=== PATIENT | male | born 1965 | race Caucasian/White ===

== ENCOUNTER → 2023-02-18 13:19 | Outpatient (BNVA) | payer SELFPAY | PROVIDERS: PCP Family Medicine; Visit Provider Family Medicine | DX: E11.9 Type 2 diabetes mellitus without complications (principal); E78.5 Hyperlipidemia, unspecified; Z12.5 Encounter for screening for malignant neoplasm of prostate | CPT/HCPCS: 80053; 80061; 82043; 83036; 85025; G0103 ==

== ENCOUNTER → 2023-07-31 11:41 | Outpatient (BNVA) | payer SELFPAY | PROVIDERS: PCP Family Medicine; Visit Provider Family Medicine | DX: E11.9 Type 2 diabetes mellitus without complications (principal) | CPT/HCPCS: 80053; 83036 ==

== ENCOUNTER → 2023-10-16 10:54 | Outpatient (BNVA) | payer SELFPAY | PROVIDERS: PCP Family Medicine; Visit Provider Family Medicine | DX: E11.9 Type 2 diabetes mellitus without complications (principal); I10 Essential (primary) hypertension; R19.5 Other fecal abnormalities | CPT/HCPCS: 80053; 83036 ==

== ENCOUNTER 2024-01-21 05:39 | Day surgery (SDC) | payer OTHER, SELFPAY ==
[2024-01-21 05:53] VITALS: BP 125/87; PULSE 106; RESP 18; TEMP 36.2; O2SAT 98; BMI 29.0
[2024-01-21] MEDS: sodium chloride 0.9% 1,000 ML 30 ML IV (06:04)
[2024-01-21 06:07] LABS: Glucose Point of Care 188 mg/dL (70-110)
--- NOTE | 2024-01-21 06:28 | PM.HP ---
Providers/Chief Complaint Primary Care Provider: Sariah Slater DO Chief Complaint: Z12.11 History of Present Illness Everett Holman is a 58 year old male Review of Systems General: Reports: 10 or more systems reviewed and unremarkable except in HPI and below Medications/Allergies Home Medications Medication Instructions Recorded Confirmed Last Taken Type aspirin 81 mg chewable tablet 81 mg PO DAILY 12/03/22 01/19/24 01/18/24 History (Children's Aspirin) flash glucose sensor (FreeStyle #2 ea 12/03/22 10/21/23 Unknown Rx Anthony 14 Day Sensor kit) flash glucose sensor (FreeStyle #2 ea 10/16/23 10/21/23 Unknown Rx Anthony 2 Sensor kit) canagliflozin 300 mg tablet 300 mg PO QAM #90 tabs 10/17/23 01/19/24 01/18/24 Rx (Invokana) carvedilol 3.125 mg tablet 3.125 mg PO BID 90 days #180 tabs 10/17/23 01/19/24 01/18/24 Rx losartan 50 mg tablet 50 mg PO DAILY #90 tabs 10/17/23 01/19/24 01/18/24 Rx metformin 500 mg tablet 1,000 mg (2 x 500 mg) PO BID #360 10/17/23 01/19/24 01/18/24 Rx tabs rosuvastatin 40 mg tablet 40 mg PO DAILY #90 tabs 10/17/23 01/19/24 01/18/24 Rx sitagliptin phosphate 100 mg 100 mg PO QAM 01/19/24 01/19/24 01/18/24 History tablet (Januvia) Allergies Allergy/AdvReac Type Severity Reaction Status Date / Time No Known Allergies Allergy Unverified 01/19/24 08:33 PFSH Acute PFSH: Medical History (Updated 10/21/23 @ 09:15 by Angus Lopez DO) Family history of colon cancer Dyslipidemia [place] (myocardial infarction) Type 2 diabetes mellitus, without long-term current use of insulin Benign essential HTN Surgical History History of right inguinal hernia repair 2007 History of heart artery stent 2016 - RCA Family History Father Diabetes Grandfather Cancer colon Social History Smoking and tobacco/nicotine status: current every day tobacco/nicotine user Alcohol intake: current Alcohol intake frequency: holidays/special occasions only Vitals/I&O/Wt Last Vital Signs Temp 97.1 F L 01/21/24 05:53 Pulse 106 H 01/21/24 05:53 Resp 18 01/21/24 05:53 BP 125/87 01/21/24 05:53 Pulse Ox 98 01/21/24 05:53 O2 Del Method Room Air 01/21/24 05:53 Weight last 48 hrs Weight 180 lb A&P Assessment and plan (1) Colon cancer screening: Plan Colonoscopy The risks and benefits of the procedure, including bleeding, infection, intestinal perforation requiring surgery, missed lesion were explained to the patient. The patient is understanding of the risks and wishes to proceed. Attestations Medical Necessity Statement*: Home Coding Level of Care Code Acute Code for Chg Fwd Diagnoses Colon cancer screening Z12.11
--- NOTE | 2024-01-21 06:50 | ANES.PREANE2 ---
Pre-Anesthetic Assessment Height/Weight: Height 1.68 m Weight 81.647 kg Temp Pulse Resp BP Pulse Ox O2 Del Method 97.1 F L 106 H 18 125/87 98 Room Air 01/21/24 05:53 01/21/24 05:53 01/21/24 05:53 01/21/24 05:53 01/21/24 05:53 01/21/24 05:53 Preop Diagnosis: screening Operation Date: 01/21/24 07:00 Proposed Procedures p Colonoscopy [id number],Z12.11(Not Applicable) - Angus Lopez DO Familial anesthetic complications: none Last intake: Intake Last Liquid Date 01/20/24 Last Liquid Time 22:00 Last Solid Date 01/19/24 Social Tobacco 1 pack(s) per day 30 pack years Exam alert, oriented x 3, clear to auscultation bilaterally and regular rate & rhythm Airway Submandibular: within normal limits Cervical ROM: within normal limits Mallampati: Class I Dentition: false Pulmonary None reported CV/HEM Coronary Artery Disease, Hypertension and Myocardial Infarction (2016 stent x 1 replaced stent 2017) None reported Hepatic None reported GI None reported Metabolic Diabetes Mellitus and Hyper[place] [facility] [place] None reported Neuropsych None reported Anesthetic Plan ASA status: 3 Anesthesia: MAC Risk of > 500 ml blood loss (7ml/kg in children): No Medications/Allergies Home Medications Medication Instructions Recorded Confirmed Last Taken Type aspirin 81 mg chewable tablet 81 mg PO DAILY 12/03/22 01/19/24 01/18/24 History (Children's Aspirin) flash glucose sensor (FreeStyle #2 ea 12/03/22 10/21/23 Unknown Rx Anthony 14 Day Sensor kit) flash glucose sensor (FreeStyle #2 ea 10/16/23 10/21/23 Unknown Rx Anthony 2 Sensor kit) canagliflozin 300 mg tablet 300 mg PO QAM #90 tabs 10/17/23 01/19/24 01/18/24 Rx (Invokana) carvedilol 3.125 mg tablet 3.125 mg PO BID 90 days #180 tabs 10/17/23 01/19/24 01/18/24 Rx losartan 50 mg tablet 50 mg PO DAILY #90 tabs 10/17/23 01/19/24 01/18/24 Rx metformin 500 mg tablet 1,000 mg (2 x 500 mg) PO BID #360 10/17/23 01/19/24 01/18/24 Rx tabs rosuvastatin 40 mg tablet 40 mg PO DAILY #90 tabs 10/17/23 01/19/24 01/18/24 Rx sitagliptin phosphate 100 mg 100 mg PO QAM 01/19/24 01/19/24 01/18/24 History tablet (Januvia) Allergies Allergy/AdvReac Type Severity Reaction Status Date / Time No Known Allergies Allergy Unverified 01/19/24 08:33 Current Medications Generic Name Dose Route Start Last Admin Trade Name Freq PRN Reason Stop Dose Admin Sodium Chloride 1,000 mls @ 30 mls/hr 01/21/24 06:00 01/21/24 06:04 Sodium Chloride 0.9% IV 01/22/24 05:59 30 mls/hr .Q24H LIBAN Administration PFSH Anesthesia Medical History (Updated 10/21/23 @ 09:15 by Angus Lopez DO) Family history of colon cancer Dyslipidemia [place] (myocardial infarction) Type 2 diabetes mellitus, without long-term current use of insulin Benign essential HTN Surgical History History of right inguinal hernia repair 2007 History of heart artery stent 2016 - RCA Family History Father Diabetes Grandfather Cancer colon Social History Smoking and tobacco/nicotine status: current every day tobacco/nicotine user Alcohol intake: current Alcohol intake frequency: holidays/special occasions only Data Anesthesia Cardiac Studies: No Data to Display
[2024-01-21 07:29] VITALS: BP 112/70; PULSE 96; RESP 12; TEMP 36.6; O2SAT 94
[2024-01-21 07:34] VITALS: BP 119/93; PULSE 92; RESP 18; O2SAT 96
[2024-01-21 07:50] VITALS: BP 132/87; PULSE 88; RESP 18; O2SAT 95
--- NOTE | 2024-01-21 08:00 | ANE.PACU2 ---
Inpatient post-anesthesia follow up: Airway intact: Yes Vital signs: Temperature 97.8 F Pulse Rate 88 Respiratory Rate 18 Blood Pressure 132/87 Pulse Oximetry 95 Oxygen Delivery Me thod Room Air Oxygen Flow Rate Fraction of Inspir ed Oxygen Hydration adequate: Yes Nausea and vomiting: No Pain level: 1 Mental status: Baseline
== END 2024-01-21 08:02 | disposition home or self-care (01) ==
PROVIDERS: PCP Family Medicine; Visit Provider Surgery
PROC: 0DJD8ZZ Inspection of Lower Intestinal Tract, Via Natural or Artificial Opening Endoscopic (ICD-10-PCS; CPT 45378; principal; 2024-01-21 07:00)
DX: Z12.11 Encounter for screening for malignant neoplasm of colon (principal); K57.30 Diverticulosis of large intestine without perforation or abscess without bleeding; K64.8 Other hemorrhoids; D12.4 Benign neoplasm of descending colon; D12.8 Benign neoplasm of rectum; Z79.82 Long term (current) use of aspirin; Z79.84 Long term (current) use of oral hypoglycemic drugs; Z80.0 Family history of malignant neoplasm of digestive organs; E78.5 Hyperlipidemia, unspecified; I25.2 Old myocardial infarction; E11.9 Type 2 diabetes mellitus without complications; I10 Essential (primary) hypertension; F17.210 Nicotine dependence, cigarettes, uncomplicated; Z95.5 Presence of coronary angioplasty implant and graft
CPT/HCPCS: 36416; 45385; 82962; 88305; J2704; J7030

== ENCOUNTER → 2024-04-12 09:09 | Outpatient (BNVA) | payer OTHER, SELFPAY | PROVIDERS: PCP Family Medicine; Visit Provider Family Medicine | DX: E11.9 Type 2 diabetes mellitus without complications (principal); Z13.6 Encounter for screening for cardiovascular disorders; Z12.5 Encounter for screening for malignant neoplasm of prostate; M54.42 Lumbago with sciatica, left side | CPT/HCPCS: 80053; 80061; 82043; 83036; G0103 ==

== ENCOUNTER → 2024-10-18 08:59 | Outpatient (BNVA) | payer OTHER, SELFPAY | PROVIDERS: PCP Family Medicine; Visit Provider Family Medicine | DX: I10 Essential (primary) hypertension (principal); I25.2 Old myocardial infarction; E78.5 Hyperlipidemia, unspecified; E11.9 Type 2 diabetes mellitus without complications; I25.10 Atherosclerotic heart disease of native coronary artery without angina pectoris | CPT/HCPCS: 80061; 83036; 84443 ==

== ENCOUNTER → 2024-10-25 07:19 | Outpatient (BNVA) | payer OTHER, SELFPAY | PROVIDERS: PCP Family Medicine; Visit Provider Family Medicine | DX: R79.89 Other specified abnormal findings of blood chemistry (principal) | CPT/HCPCS: 82172; 83695 ==

== ENCOUNTER 2024-12-14 11:31 | Outpatient (CLI) | payer OTHER, SELFPAY ==
--- NOTE | 2024-12-14 12:00 | CT_ITS ---
WS: [id number] LDCT LUNG CANCER SCREENING HISTORY: nicola dependence 41pk yr; screening lung ca TECHNIQUE: Axial imaging performed from the apices to 1 cm below the costophrenic angles. Coronal and sagittal reformats are submitted with axial MIP series. All CT scans at [facility] use at least one of these dose optimization techniques: automated exposure control; mA and/or kV adjustment per patient size (includes targeted exams where dose is matched to clinical indication); or iterativ e reconstruction. DLP: 77.50 mGy.cm DIvol: Mean CTDIvol: 1.70 (mGy) COMPARISON: None available. Diagnostic quality: Satisfactory Lungs: Pulmonary hyperexpansion with mild paraseptal emphysema. No pulmonary mass or nodule. No pneum onia. Heart: Normal size heart with no pericardial effusion.. Other findings: Mild atherosclerosis aorta. Normal size aorta and pulmonary artery. No mediastinal or hilar adenopathy. No adrenal mass. CT/CT lung screening [id number] IMPRESSION: LUNG-RADS: 1-Negative FOLLOW UP: 12 Month: Continue annual screening with LDCT OTHER FINDINGS (S MODIFIER): None.
== END 2024-12-14 11:32 | disposition home or self-care (01) ==
LOC: RAD 11:33
PROVIDERS: PCP Family Medicine; Visit Provider Family Medicine
DX: Z12.2 Encounter for screening for malignant neoplasm of respiratory organs (principal); F17.219 Nicotine dependence, cigarettes, with unspecified nicotine-induced disorders; J43.8 Other emphysema; R91.8 Other nonspecific abnormal finding of lung field; I70.0 Atherosclerosis of aorta
CPT/HCPCS: 71271

== ENCOUNTER → 2024-12-31 10:12 | Outpatient (BNVA) | payer OTHER, SELFPAY | PROVIDERS: PCP Family Medicine; Visit Provider Physician Assistant | DX: M70.62 Trochanteric bursitis, left hip (principal); M54.42 Lumbago with sciatica, left side; M54.41 Lumbago with sciatica, right side; M54.16 Radiculopathy, lumbar region | CPT/HCPCS: 73522 ==

== ENCOUNTER → 2025-01-04 14:49 | Outpatient (BNVA) | payer OTHER, SELFPAY | PROVIDERS: PCP Family Medicine; Visit Provider Internal Medicine Cardiovascular Disease | DX: R07.9 Chest pain, unspecified (principal) | CPT/HCPCS: 93005 ==

== ENCOUNTER → 2025-01-11 14:57 | Outpatient (BNVA) | payer OTHER, SELFPAY | PROVIDERS: PCP Family Medicine; Visit Provider Orthopaedic Surgery | DX: M54.16 Radiculopathy, lumbar region (principal) | CPT/HCPCS: 72110 ==

== ENCOUNTER 2025-01-27 07:27 | Outpatient (RCR) | payer OTHER, SELFPAY | END 2025-01-28 23:59 | disposition home or self-care (01) | LOC: SPT 07:27 | PROVIDERS: Visit Provider Orthopaedic Surgery | DX: M54.50 Low back pain, unspecified (principal); G89.29 Other chronic pain | CPT/HCPCS: 97161 ==

== ENCOUNTER 2025-01-29 06:30 | Outpatient (RCR) | payer OTHER, SELFPAY | END 2025-02-28 23:59 | disposition home or self-care (01) | LOC: SPT 06:30 | PROVIDERS: Visit Provider Orthopaedic Surgery | DX: M54.50 Low back pain, unspecified (principal); G89.29 Other chronic pain | CPT/HCPCS: 97110 ==

== ENCOUNTER → 2025-03-14 08:39 | Outpatient (BNVA) | payer OTHER, SELFPAY | PROVIDERS: PCP Family Medicine; Visit Provider Family Medicine | DX: E11.9 Type 2 diabetes mellitus without complications (principal); I10 Essential (primary) hypertension; I25.2 Old myocardial infarction; I25.10 Atherosclerotic heart disease of native coronary artery without angina pectoris; E78.5 Hyperlipidemia, unspecified; F17.219 Nicotine dependence, cigarettes, with unspecified nicotine-induced disorders; Z71.6 Tobacco abuse counseling | CPT/HCPCS: 80053; 80061; 82043; 83036; 85025 ==

== ENCOUNTER → 2025-06-24 09:37 | Outpatient (BNVA) | payer OTHER, SELFPAY | PROVIDERS: PCP Family Medicine; Visit Provider Family Medicine | DX: E11.9 Type 2 diabetes mellitus without complications (principal) | CPT/HCPCS: 80053; 83036 ==

== ENCOUNTER 2025-07-01 07:42 | Outpatient (CLI) | payer OTHER, SELFPAY ==
--- NOTE | 2025-07-01 08:00 | MR_ITS ---
WS: [id number] MRI LUMBAR SPINE NONCONTRAST HISTORY: Back pain to LEFT leg. COMPARISON: Radiographs 01/11/2025 TECHNIQUE: Sagittal and axial multisequence imaging is submitted. Mild increase in thoracic kyphosis. Disc space narrowing desiccation in the cervical and thoracic spines. Normal lumbar alignment with no compression fractures or marrow edema. Mild disc desiccation at L3-4 and L4-5. No fractures. Conus terminates normally at Conus tapers and terminates normally at L1. L1-L2: Normal. L2-L3: Mild disc bulging with moderate ligamentum flavum and facet arthritis. Mild narrowing of the LEFT subarticular recess. Mild foraminal narrowing. L3-L4: Moderate diffuse annular disc bulging with mild osteophytic ridging, ligamentum flavum and facet arthritis. Mild central and bilateral subarticular recess and foraminal stenosis. There is mild contact on the L3 and L4 nerve roots. L4-L5: Diffuse annular disc bulging. Moderate size central disc protrusion with effacement of CSF. Marked ligamentum flavum and facet arthritis. Central disc protrusion extends greatest to the LEFT. Severe central and bilateral subarticular recess stenosis with marked contact on the traversing L5 nerve roots. Additional at least moderate bilateral foraminal stenosis with additional contact on the exiting L4 nerve roots. L5-S1: Mild annular disc bulging. Moderate facet arthritis. Fluid in the facet joints. Moderate RIGHT and mild LEFT foraminal stenosis. Paravertebral soft tissues are negative. MR/MR lumbar spine wo con* [id number] IMPRESSION: 1. L4-5: Severe central, bilateral subarticular recess and moderate foraminal stenosis. Marked disc bulging with a central to LEFT paracentral disc protrusio n. There is contact on the L4 and L5 nerve roots, bilateral. 2. L3-4: Mild central, bilateral subarticular recess and foraminal stenosis. T here is mild disc osteophyte contact on the L3 and L4 nerve roots. 3. L2-3: Mild LEFT subarticular recess and mild bilateral foraminal stenosis. 4. Facet joint arthritis moderate to severe from L2-3 to L5-S1.
== END 2025-07-01 07:43 | disposition home or self-care (01) ==
LOC: RAD 07:43
PROVIDERS: PCP Family Medicine; Visit Provider Orthopaedic Surgery
DX: M54.9 Dorsalgia, unspecified (principal); M51.16 Intervertebral disc disorders with radiculopathy, lumbar region; M48.061 Spinal stenosis, lumbar region without neurogenic claudication; M47.897 Other spondylosis, lumbosacral region
CPT/HCPCS: 72148

== ENCOUNTER → 2025-07-05 14:49 | Outpatient (BNVA) | payer OTHER, SELFPAY | PROVIDERS: PCP Family Medicine; Visit Provider Orthopaedic Surgery | DX: Z01.818 Encounter for other preprocedural examination (principal) | CPT/HCPCS: 36415; 80053; 81001; 83036; 85025 ==

== ENCOUNTER → 2025-07-13 09:34 | Outpatient (BNVA) | payer OTHER, SELFPAY | PROVIDERS: PCP Family Medicine; Visit Provider Family Medicine | DX: Z01.818 Encounter for other preprocedural examination (principal) | CPT/HCPCS: 93005 ==

== ENCOUNTER 2025-07-20 05:45 | Day surgery (SDC) | payer OTHER, SELFPAY ==
[2025-07-20] VITALS (9 sets, daily range): BP systolic 120–161; BP diastolic 80–106; PULSE 87–96; RESP 16–17; TEMP 36.2–36.6; O2SAT 90–98; BMI 28.2
--- NOTE | 2025-07-20 06:24 | W.PM.OPSUD ---
Surgery/Procedure H&P Update DATE OF PROCEDURE: July 20, 2025 DATE H&P PERFORMED: 07/13/25 H&P UPDATE INFORMATION: I have reviewed H&P completed within last 30 days, I have examined patient prior to procedure and No changes to prior documentation PREOP DIAGNOSIS: Lumbar stenosis with neurogenic claudication PLANNED PROCEDURE: Operation Date: 07/20/25 07:00 Proposed Procedures p Lumbar Spine Decompression Lumbar Decompression(Not Applicable) - Rico Pan DO
[2025-07-20] MEDS: insulin regular-human 100 units/1 mL 10 UNIT SUBCUT (06:35)
--- NOTE | 2025-07-20 06:46 | ANES.PREANE2 ---
Pre-Anesthetic Assessment Height/Weight: Height 1.68 m Weight 79.379 kg Temp Pulse Resp BP Pulse Ox O2 Del Method 97.5 F L 96 17 120/87 98 Room Air 07/20/25 06:04 07/20/25 06:04 07/20/25 06:04 07/20/25 06:04 07/20/25 06:04 07/20/25 06:04 Preop Diagnosis: Lumbar stenosis with neurogenic claudication Operation Date: 07/20/25 07:00 Proposed Procedures p Lumbar Spine Decompression Lumbar Decompression(Not Applicable) - Rico Pan, DO Familial anesthetic complications: None Was Beta Bertrand taken within 24 hours: Yes Was Clonidine taken within 24 hours: N/A Last intake: Intake Last Liquid Date 07/19/25 Last Liquid Time 21:30 Last Solid Date 07/19/25 Last Solid Time 20:30 Social Tobacco and No alcohol Exam alert, oriented x 3, clear to auscultation bilaterally and regular rate & rhythm Airway Mallampati: Class III Dentition: false CV/HEM Coronary Artery Disease (stent) and Hypertension Metabolic Diabetes Mellitus Anesthetic Plan ASA status: 3 Anesthesia: General Risk of > 500 ml blood loss (7ml/kg in children): No Medications/Allergies Home Medications ?Medication ?Instructions ?Recorded ?Confirmed ?Last Taken ?Type flash glucose sensor (FreeStyle #2 ea 07/23/24 07/13/25 Unknown Rx Anthony 14 Day Sensor kit) aspirin 81 mg chewable tablet 81 mg PO DAILY #90 tabs 01/01/25 07/19/25 07/12/25 Rx (Children's Aspirin) carvedilol 3.125 mg tablet 3.125 mg PO BID 90 days #180 tabs 03/14/25 07/20/25 07/20/25 Rx losartan 50 mg tablet 50 mg PO DAILY #90 tabs 03/14/25 07/19/25 07/19/25 Rx rosuvastatin 40 mg tablet 40 mg PO DAILY #90 tabs 03/15/25 07/19/25 07/19/25 Rx empagliflozin 25 mg tablet 25 mg PO DAILY #90 tabs 03/17/25 07/19/25 07/15/25 Rx (Jardiance) metformin 500 mg tablet 1,000 mg (2 x 500 mg) PO BID 90 05/23/25 07/19/25 07/19/25 Rx days #360 tabs semaglutide 0.25 mg or 0.5 mg (2 0.25 mg (0.368 mL) SUBCUT .weekly 06/30/25 07/19/25 07/03/25 Rx mg/3 mL) subcutaneous pen injector #3 mL (Ozempic) blood-glucose sensor (FreeStyle #1 ea 07/18/25 Unknown Rx Anthony 3 Plus Sensor device) Allergies Allergy/AdvReac Type Severity Reaction Status Date / Time No Known Allergies Allergy Verified 07/20/25 06:02 Current Medications Generic Name Dose Route Start Last Admin Trade Name Freq PRN Reason Stop Dose Admin Sodium Chloride 1,000 mls @ 30 mls/hr 07/20/25 06:00 07/20/25 06:23 Sodium Chloride 0.9% IV 07/21/25 05:59 30 mls/hr .Q24H LIBAN Administration PFSH Anesthesia Medical History Trochanteric bursitis, left hip 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 Acute left-sided low back pain with left-sided sciatica CAD (coronary artery disease) Hypertension Screening for lung cancer Family history of colon cancer Dyslipidemia [place] (myocardial infarction) Type 2 diabetes mellitus, without long-term current use of insulin Surgical History Hx of colonoscopy with polypectomy 2..24--repeat in 3yrs due to polyp History of right inguinal hernia repair 2007 History of heart artery stent 2015 - RCA Family History Father Diabetes Grandfather Cancer colon Social History Smoking and tobacco/nicotine status: current every day tobacco/nicotine user cigarettes Packs smoked per day: 1 Years cigarettes smoked: 39 Alcohol intake: current Alcohol intake frequency: holidays/special occasions only Household members: spouse Marital status: Number of children: 3 Highest education level completed: High School Graduate Current occupational status: employed 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
[2025-07-20] MEDS: ceFAZolin 2,000 mg SDV 2000 MG IVP (07:39)
[2025-07-20] MEDS: lidocaine-epi 1% 20 mL INJ 10 ML INJECTION (08:26)
--- NOTE | 2025-07-20 09:25 | PM.OP ---
Operative Report Date of procedure: July 20, 2025 Pre-op diagnosis: Lumbar stenosis with neurogenic claudication Post-op diagnosis: same Procedure done: 1. L3/4 laminectomy with partial facetectomy 2. L4/5 laminectomy partial facetectomy Surgeon: Rico Pan DO Estimated blood loss (mL): 5 Procedure: 1. L3/4 laminectomy with partial facetectomy 2. L4/5 laminectomy partial facetectomy Patient is brought to the operative suite. After undergoing anesthesia they are placed in the prone position. All areas of impingement are well padded. Patient is then prepped and draped in the normal sterile fashion. A skin incision is made over the L3/4 level. This is confirmed under c-arm guidance. A series of dilators are passed and the tubular retractor is docked on the L L3 lamina. A bovie is used to clear the soft tissue off the lamina and the L L3/4 facet joint. A high speed akira is then used to perform the laminectomy and take down the medial aspect of the L L3/4 facet joint. A kerrison rongeure was then used to take down the remaining lamina and smooth the edge of the laminectomy up to the point where the ligamentum flavum attaches. Attention was then brought to the medial aspect of the facet joint. The remaining medial aspect of the superior and inferior aspect of the facet joint were taken down with the kerrison from the pedicle of L3 to L 4. The facet joint had significant hypertrophy. Attention was then brought to the Ligamentum Flavum. The ligament was taken down from the lamina of L3 to L4 and out medially to the remaining facet joint. The ligament was thick. The dura was then exposed. The dura was in good repair. The L3 nerve was then traced with a curette out the L3/4 foramen and found to be adequately decompressed. The L4 nerve was traced with a curette around the L4 pedicle. The lateral recess was opened with a kerrison helping to further decompress the L4 nerve. Wound is then irrigated copiously with saline and surgiflo is used to stop any bleeding. The tubular retractor is removed skin incision is made over the L4/5 level. This is confirmed under c-arm guidance. A series of dilators are passed and the tubular retractor is docked on the L4 lamina. A bovie is used to clear the soft tissue off the lamina and the L 4/5 facet joint. A high speed akira is then used to perform the laminectomy and take down the medial aspect of the L 4/5 facet joint. A kerrison rongeure was then used to take down the remaining lamina and smooth the edge of the laminectomy up to the point where the ligamentum flavum attaches. Attention was then brought to the medial aspect of the facet joint. The remaining medial aspect of the superior and inferior aspect of the facet joint were taken down with the kerrison from the pedicle of L4 to L 5. The facet joint had significant hypertrophy. Attention was then brought to the Ligamentum Flavum. The ligament was taken down from the lamina of L4 to L5 and out medially to the remaining facet joint. The ligament was thick. The dura was then exposed. The dura was in good repair. The L4 nerve was then traced with a curette out the L4/5 foramen and found to be adequately decompressed. The L5 nerve was traced with a curette around the L5 pedicle. The lateral recess was opened with a kerrison helping to further decompress the L5 nerve. Wound is then irrigated copiously with saline and surgiflo is used to stop any bleeding. The tubular retractor is removed and the wound is closed with vicryl and monocryl suture. Steri strips were applied. A sterile dressing is then placed. Patient was then placed in the supine position and transferred to the PACU in stable condition.
--- NOTE | 2025-07-20 09:55 | XR_ITS ---
WS: [id number] Lumbar spine, C-arm fluoroscopy views, 07/20/2025 Clinical Data: or pic, decompression Comparison: Lumbar spine, 01/11/2025 Findings: Dr. Pan performed a lumbar decompression. XR/XR lumbar spine 1V [id number] Impression: Lumbar decompression.
[2025-07-20] MEDS: HYDROcodone-acetaminophen 5-325 mg Tablet 2 TAB PO (10:00)
--- NOTE | 2025-07-20 10:22 | ANE.PACU2 ---
Inpatient post-anesthesia follow up: Airway intact: Yes Vital signs: Temperature 98 F Pulse Rate 92 Respiratory Rate 17 Blood Pressure 124/80 Pulse Oximetry 98 Oxygen Delivery Me thod Room Air Oxygen Flow Rate Fraction of Inspir ed Oxygen Hydration adequate: Yes Nausea and vomiting: No Pain level: 1 Mental status: Baseline
--- NOTE | 2025-07-20 10:37 | SUR.PHASEII ---
[place] 5/325(2) po given and pt ready to go home, and pt stated that he has had this before with no adverse reactions
== END 2025-07-20 10:20 | disposition home or self-care (01) ==
PROVIDERS: PCP Family Medicine; Visit Provider Orthopaedic Surgery
PROC: (CPT 63005; principal; 2025-07-20 07:00)
DX: M48.062 Spinal stenosis, lumbar region with neurogenic claudication (principal); I25.10 Atherosclerotic heart disease of native coronary artery without angina pectoris; Z95.5 Presence of coronary angioplasty implant and graft; I10 Essential (primary) hypertension; E11.9 Type 2 diabetes mellitus without complications; Z79.82 Long term (current) use of aspirin; Z79.84 Long term (current) use of oral hypoglycemic drugs; E78.5 Hyperlipidemia, unspecified; I25.2 Old myocardial infarction; F17.210 Nicotine dependence, cigarettes, uncomplicated
CPT/HCPCS: 63047; 63048; 36416; 72020; 76000; 82962; J0131; J0690; J1100; J1171; J1815; J2405; J2704; J3010; J3490; J7030; J9999

== ENCOUNTER → 2025-09-05 08:23 | Outpatient (BNVA) | payer OTHER, SELFPAY | PROVIDERS: PCP Family Medicine; Visit Provider Orthopaedic Surgery | DX: Z12.5 Encounter for screening for malignant neoplasm of prostate (principal) | CPT/HCPCS: G0103 ==